=== PATIENT | female | born 1955 | race African-American/Black ===

== ENCOUNTER 2020-04-16 08:29 | Outpatient (CLI) | payer OTHER ==
--- NOTE | 2020-04-20 14:57 | MMO ---
Bilateral MAMMO Bilat Screen [facility]. CLINICAL HISTORY: Patient is 64 years old and is seen for screening. The patient has no family history of breast cancer. The patient has no personal history of cancer. VIEWS: The views performed were: bilateral craniocaudal with tomosynthesis and bilateral mediolateral oblique with tomosynthesis. FILMS COMPARED: The present examination has been compared to prior imaging studies performed at This study has been interpreted with the assistance of computer-aided detection. MAMMOGRAM FINDINGS: The breasts are heterogeneously dense, which could obscure a lesion on mammography. Benign calcifications are noted bilaterally. There are no suspicious masses, suspicious calcifications, or new areas of architectural distortion. IMPRESSION: THERE IS NO MAMMOGRAPHIC EVIDENCE OF MALIGNANCY. A ROUTINE FOLLOW-UP MAMMOGRAM IN 1 YEAR IS RECOMMENDED. THE RESULTS OF THIS EXAM WERE SENT TO THE PATIENT. ACR BI-RADS Category 2 - Benign finding MAMMOGRAPHY NOTE: 1. A negative mammogram report should not delay a biopsy if a dominant of clinically suspicious mass is present. 2. Approximately 10% to 15% of breast cancers are not detected by mammography. 3. Adenosis and dense breasts may obscure an underlying neoplasm. Reported by: BRITTNY DAS MD Electonically Signed: [id number]
== END 2020-04-16 08:30 | disposition home or self-care (01) ==
LOC: BICMAMMO 08:29
PROVIDERS: ATTEND Family Medicine
DX: Z12.31 Encounter for screening mammogram for malignant neoplasm of breast (principal)
CPT/HCPCS: 77063; 77067

== ENCOUNTER 2020-05-21 05:55 | Outpatient (CLI) | payer OTHER ==
[2020-05-21 14:02] LABS: PTT 30.2 sec (22.9-36.1)
[2020-05-21 14:07] LABS: Hemoglobin 12.3 g/dL (12.0-16.0); Mean Corpuscular HGB CONC 33.6 g/dL (32.0-36.0); Mean Corpuscular Hemoglobin 31.7 pg (27.0-31.0); Mean Corpuscular Volume 94.4 fL (78.0-98.0); Mean Platelet Volume 7.7 fL (7.4-10.4); Platelet Count 350 thou/uL (130-400); RBC Distribution Width 12.3 % (11.5-14.5); Red Blood Cell (RBC) Count 3.87 mill/uL (4.20-5.40)
[2020-05-21 14:28] LABS: Anion Gap 11 mmol/L (10-20); BUN (Urea Nitrogen) 11 mg/dL (9.8-20.1); Calc. Creatinine Clearance 0 mL/min (70-130); Calcium 8.6 mg/dL (7.8-10.44); Carbon Dioxide 25 mmol/L (23-31); Chloride 103 mmol/L (98-107); Estimated GFR-MDRD 76; Glucose 100 mg/dL (80-115); Potassium 3.8 mmol/L (3.5-5.1); Sodium 135 mmol/L (136-145)
[2020-05-22 15:58] LABS: SARS-CoV-2 N Gene Negative; SARS-CoV-2 S Gene Negative; SARS-CoV-2 orf1ab Negative
[2020-05-22 15:59] LABS: SARS-CoV-2 MS2 Positive
--- NOTE | 2020-05-25 10:10 | EKG ---
Test Reason : PRE OP FOR 05/26 Blood Pressure : / mmHG Vent. Rate : 060 BPM Atrial Rate : 060 BPM P-R Int : 150 ms QRS Dur : 080 ms QT Int : 398 ms P-R-T Axes : 076 067 058 degrees QTc Int : 398 ms Normal sinus rhythm Normal ECG Confirmed by FRANCESCA FUENTES (2) on 05/25/2020 10:09:41 AM Referred By: KIKA Confirmed By:FRANCESCA FUENTES
== END 2020-05-21 05:56 | disposition home or self-care (01) ==
LOC: LABBT 05:55
PROVIDERS: ATTEND Surgery
DX: Z01.818 Encounter for other preprocedural examination (principal); Z11.59 Encounter for screening for other viral diseases; M48.061 Spinal stenosis, lumbar region without neurogenic claudication; M51.16 Intervertebral disc disorders with radiculopathy, lumbar region
CPT/HCPCS: 80048; 85027; 85610; 85730; 87635; 93005; 93010; U0003

== ENCOUNTER 2020-06-08 16:10 | Inpatient (IN) | payer OTHER ==
[~2020-06-08 16:10] MED LIST: Iopamidol-370 76% 500 ML 1 ML ONE
[2020-06-08 18:01] LABS: #Basophils 0.1 thou/uL (0.0-0.2); #Eosinphils 0.5 thou/uL (0.0-0.7); #Lymphocytes 4.5 thou/uL (1.20-3.40); #Monocytes 1.2 thou/uL (0.11-0.59); #Neutrophils 8.7 thou/uL (1.40-6.50); %Basophils 0.9 % (0.0-1.0); %Eosinophils 3.4 % (0.0-10.0); %Lymphocytes 29.9 % (21.0-51.0); %Neutrophils 57.8 % (42.0-75.0); Hemoglobin 12.2 g/dL (12.0-16.0); Mean Corpuscular HGB CONC 33.3 g/dL (32.0-36.0); Mean Corpuscular Hemoglobin 31.8 pg (27.0-31.0); Mean Corpuscular Volume 95.7 fL (78.0-98.0); Mean Platelet Volume 6.2 fL (7.4-10.4); Platelet Count 439 thou/uL (130-400); RBC Distribution Width 12.5 % (11.5-14.5); Red Blood Cell (RBC) Count 3.84 mill/uL (4.20-5.40); White Blood Cell (WBC) Count 15.1 thou/uL (4.8-10.8)
--- NOTE | 2020-06-08 18:06 | CT ---
CT HEAD WITHOUT IV CONTRAST COMPARISON: None HISTORY: Right-sided weakness. TECHNIQUE: Axial CT imaging at 5 mm intervals from vertex through skull base without contrast FINDINGS: There is no evidence of an acute infarction, hemorrhage, mass effect, or midline shift. The ventricul ar system is normal in size, shape, and position. Visualized paranasal sinuses are clear. Osseous structures appear intact. IMPRESSION: 1. No acute intracranial abnormality demonstrated.
[2020-06-08 18:20] LABS: ALT (SGPT) 140 U/L (8-55); AST (SGOT) 97 U/L (5-34); Albumin 3.5 g/dL (3.4-4.8); Alkaline Phosphatase 167 U/L (40-110); Anion Gap 12 mmol/L (10-20); BUN (Urea Nitrogen) 23 mg/dL (9.8-20.1); Bilirubin, Total 0.3 mg/dL (0.2-1.2); Calc. Creatinine Clearance 0 mL/min (70-130); Calcium 8.4 mg/dL (7.8-10.44); Carbon Dioxide 23 mmol/L (23-31); Chloride 96 mmol/L (98-107); Estimated GFR-MDRD 61; Globulin 2.8 g/dL (2.4-3.5); Glucose 71 mg/dL (80-115); Potassium 4.4 mmol/L (3.5-5.1); Protein, Total 6.3 g/dL (6.0-8.3); Sodium 127 mmol/L (136-145)
[2020-06-08] MEDS ORDERED: Aspirin 325 MG TAB ONE (18:24)
[2020-06-08 18:58] LABS: Bacteria/HPF None Seen HPF (None Seen); Bilirubin Negative (Negative); Blood, Urine Trace (Negative); Clarity Clear (Clear); Glucose, Urine (Dipstick) Normal (Negative); Ketone, Urine Negative (Negative); Leukocyte 75 Leu/uL (Negative); Nitrite Negative (Negative); Protein, Urine (Dipstick) Negative (Neg-Trace); RBC/HPF 0-3 HPF (0-3); Specific Gravity, Urine 1.012 (1.002-1.036); Squamous Epithelial 0-3 HPF (0-3); Urobilinogen Normal mg/dL (Less than 2)
[2020-06-08] MEDS ORDERED: Sodium Chloride 0.9% 100 ML ONE (19:25)
[2020-06-08] MEDS ORDERED: cefTRIAXone\\ROCEPHIN 1 GM VIAL ONE (19:25)
[2020-06-08] MEDS ORDERED: Calcium Carbonate 500 MG ChewTAB PO PRN (20:17)
[2020-06-08] MEDS ORDERED: Ondansetron PF 4 MG/2 ML Vial IVP PRN (20:17)
[2020-06-08] MEDS ORDERED: Senokot S 8.6-50 MG TAB PO PRN (20:17)
[2020-06-08] MEDS ORDERED: Acetaminophen 325 MG TAB PO PRN (20:17)
[2020-06-08] MEDS ORDERED: Ondansetron ODT 4 MG TAB PO PRN (20:17)
[2020-06-08] MEDS ORDERED: Sodium Chloride 0.9% 1,000 ML IV SCH ×2 (20:30→23:19)
[2020-06-08 21:43] LABS: Thyroid Stimulating Hormone 2.4669 uIU/mL (0.35-4.94)
--- NOTE | 2020-06-08 22:04 | CT ---
CT lumbar spine with IV contrast: HISTORY: Right lower extremity numbness and tingling post laminectomy. COMPARISON: No prior CT exams of the lumbar spine available FINDINGS: There are subcentimeter hypodense lesions seen in each kidney which are too small to characterize but statistically likely represent cysts. Postcholecystectomy changes are visualized. Postoperative changes in the epigastric region are identified with multiple surgical clips present. There is sugges tion of a hiatal hernia. Visualized portions of the colon are distended with gas and retained fecal material. A questionable dilated loop of small bowel within the anterior aspect of the midabdomen is seen. However this is incompletely imaged and could be related to fluid within portion of the colon. Postoperative changes related to laminectomy defects are seen at the L3-4 and L4-5 levels. Grade 1 an terolisthesis of L4 and L5 is present measuring 8 mm. There is diminished attenuation seen posterior to the thecal sac at the level of laminectomy defects which also extends along the right la teral aspect of the thecal sac at the L4-5 level. Findings could be related to postoperative changes. Infection cannot be excluded based on this exam. There is also fluid seen within the subcuta neous soft tissues extending from the L1-2 level to the L4-5 level. This may also be postoperative in origin, but again infection cannot be excluded based on this study. No fluid density is seen in a prevertebral location involving the lumbar spine. L1-2: No significant central canal or neural foraminal narrowing is seen. L2-3: No significant central canal or neural foraminal narrowing is seen. L3-4: This is site of laminectomy defect as described above. Fluid is seen posterior to the thecal sa c at this level which limits evaluation of the thecal sac. Findings could be related to postoperative changes, but infection cannot be excluded. Facet degenerative changes are seen at this level. There is mild to moderate bilateral neural foraminal narrowing. L4-5: Grade 1 anterolisthesis is present at this level as described above with facet degenerative bairon nges. There is loss of intervertebral disc height with gas seen within the L4-5 intervertebral disc which can be seen with disc degenerative changes. There is suggestion of a disc bulge at this level. The fat in the right neural foramen is unable to be delineated, and there is severe right-sided neural foraminal narrowing with moderate to severe left-sided neural foraminal narrowing. There is fl uid density seen along the right lateral aspect of the thecal sac as well as posterior to the thecal sac at this level as described above. L5-S1: Mild disc osteophyte complex is present. However, the central spinal canal at this level does appear patent. Facet degenerative changes are present. Moderate bilateral neural foraminal narrowing is present. IMPRESSION: 1. Evidence of laminectomy defects at the L3-4 and L4-5 levels. There is fluid seen posterior to thec al sac as well as in the subcutaneous soft tissues at level of postsurgical change. The fluid density extends along the right lateral aspect of the thecal sac at the L4-5 level. While these findi ngs could be postoperative in origin, infection cannot be excluded. 2. Severe right-sided neural foraminal narrowing at L4-5 level with moderate to severe left-sided nate ral foraminal narrowing. There is also no foraminal narrowing at the L3-4 and L5-S1 levels. 3. Postoperative changes of the abdomen. There is dilated and distended gas-filled colon seen on the salvage winder image which contains gas and retained fecal material. Questionable dilated loop of bowel within the central and lower abdomen, but this is incompletely imaged or evaluated. However, the vlad rity of the visualized loops of small bowel are normal in caliber. This presumed dilated loop of fluid-filled bowel could potentially represent fluid within a portion of the colon. This is incomplet geronimo imaged. 4. Postcholecystectomy changes. 5. Postoperative changes epigastric region with evidence of hiatal hernia. 6. Subcentimeter too small to characterize bilateral hypodense renal lesions statistically likely rep resenting cysts. 7. Mild right pelvocaliectasis. This is nonspecific. The proximal right ureter is normal in caliber.
--- NOTE | 2020-06-08 22:31 | HP ---
PRIMARY CARE PHYSICIAN: Debra Arana MD NEUROSURGEON: José Miguel Gill MD CHIEF COMPLAINT: Right upper extremity weakness and cramping. Right lower extremity numbness and tingling x2 days. HISTORY OF PRESENT ILLNESS: The patient is a 64-year-old female with a past medical history significant for hypertension, who presents to the ER for the above complaint. The patient presents to the ER complaining of right upper hand cramping and right foot tingling x2 days. The patient reports that she is approximately 13 days post laminectomy done by Dr. Gill. She reports that she had an L4-L5 laminectomy. Since discharge, she has been on restrictions, told not to bend at the waist. She has a gripping device that she has been using with her right hand to turkey picker objects and prevent bending at waist. She denies any recent trauma or falls. She denies any recent change in her medications. She denies any recent fever or chills. She denies having any headache, dysphagia, or dysarthria. She denies any chest pain or heart palpitations. She denies any shortness of breath or cough. She denies any abdominal pain, nausea, vomiting, or diarrhea. She denies any dysuria, incontinence or urinary retention. In the ER, her vital signs were stable. She was afebrile, normotensive, normal pulse, normal respirations, normal SpO2 saturations. Her EKG was normal sinus rhythm. Her troponin was 0.018. CT of the brain was negative. She had WBC of 15.1, lactic acid of 2.2, and her urine did show leukocytes and wbc's. Her sodium was 127, her BUN was 23 and her creatinine was 1.10. She was given 2 L normal saline, full dose aspirin and Rocephin IV piggyback and will be admitted to the floor. PAST MEDICAL HISTORY: 1. Hypertension. 2. Mitral valve leaking. PAST SURGICAL HISTORY: 1. Status post L4-L5 laminectomy by Dr. Gill on May 26. 2. Hysterectomy. 3. Cataract surgery. 4. Left ovarian cyst. 5. Bilateral foot surgery. 6. Gastric bypass. SOCIAL HISTORY: The patient lives at home with her family. She drinks alcohol socially. She denies any tobacco or illicit drug use. FAMILY HISTORY: Noncontributory to this case. ALLERGIES: 1. DILAUDID. 2. DEMEROL. HOME MEDICATIONS: 1. Olmesartan 40 mg p.o. daily. 2. Chlorthalidone 25 mg p.o. daily. 3. Estrace vaginal cream 0.01% apply 2 times per week. REVIEW OF SYSTEMS: All review of systems are negative unless otherwise stated in the HPI. PHYSICAL EXAMINATION: VITAL SIGNS: Temperature 98.4, blood pressure 104/66, pulse 62, respiratory rate 18, 99% on room air, 0/10 pain. CONSTITUTIONAL: The patient is alert and oriented to person, place, and time. Nontoxic, comfortable, lying in bed. No focal deficits. HEAD: Atraumatic and normocephalic. EYES: PERRLA. Extraocular muscles intact. Sclerae nonicteric. ENT: Bilateral TMs intact. Nares patent bilaterally. Oropharynx is clear. Uvula midline. Dry mucous membranes. No oral lesions. NECK: Full range of motion. No cervical spinous tenderness. No JVD. No cervical adenopathy. RESPIRATORY/CHEST: Respirations even nonlabored. Clear to auscultation. No rhonchi, wheezes, or rales. CARDIOVASCULAR: S1, S2 appreciated. No murmurs, rubs, or gallops. ABDOMEN: Soft, nontender, nondistended. Active bowel sounds. No guarding. No rigidity. No rebound. Negative Rovsing sign. Negative Giles sign. BACK: No central spinous tenderness. No CVA tenderness. Full range of motion. EXTREMITIES: Upper extremities; full range of motion. Strength normal. Milk Inspector normal and equal bilaterally. Palpable radial pulses. Sensation intact. Lower extremities; full range of motion. Normal strength. Reports decreased sensation in right foot, left sensation normal. Palpable pedal pulses. No swelling. NEUROLOGIC: Cranial nerves 2 through 12 are intact. No focal motor deficits. The patient does report decreased sensation on her right foot dorsum. Normal gait. PSYCHIATRIC: A and O x3. Normal affect. LABS AND DIAGNOSTICS: CT of the brain was negative for any acute process. Sodium 127, potassium 4.4, chloride 96, carbon dioxide 23, BUN 23, creatinine 1.10, glucose 71. Lactic acid 2.2, pending repeat. Total bilirubin 0.3, AST 97, ALT 140, alkaline phosphatase 167. Troponin 0.018. WBCs 15.1, hemoglobin 12.2, hematocrit 36.8, platelets 439. Urine; trace blood, 75 leukocytes, 7-10 wbc's, no bacteria. IMPRESSION AND PLAN: 1. Right lower extremity tingling. We will admit the patient to the stroke unit inpatient status. Expected length of stay greater than 2 midnights. The patient presents for right hand "cramping" and right foot tingling. She is status post L4-L5 laminectomy, Dr. Gill on May 26. She has been using an assist device to pick things up that may be contributing to her hand cramping. On assessment, her neuro exam is normal. She does report some tingling to her right foot. For now , we will order a CT scan of the lumbar spine to rule out postoperative complication. The patient's vital signs are stable. She is afebrile with a normal blood pressure, normal pulse, normal respirations. She has a white count of 15.1, her urine is consistent with urinary tract infection. We will also check a B12 and a folate level. We will consult Dr. Gill with Neurosurgery. We will consult PT and OT. We will perform neuro checks q4. We will check a TSH and a sedimentation rate. 2. Urinary tract infection. The patient denies any urinary symptoms. Her urine is consistent with a UTI with leukocytes and wbc's. Urine culture is pending. The patient was given Rocephin in the ER. We will continue Rocephin and IV fluids. 3. Dehydration. The patient presented with a BUN of 23 and creatinine of 1.10. She has tacky mucous membranes. We will continue gentle IV fluid hydration. The patient received 2 L in the ER. We will recheck levels in the a.m. 4. Hyponatremia. The patient presented with a sodium of 127. We will check serum osmol, urine osmol, and urine sodium. 5. Hypertension. The patient presented with a normal blood pressure. The patient takes olmesartan at home. We will hold home medication for now. We will rehydrate and will restart in the morning as needed. We will hold patient's chlorthalidone. 6. Protonix for GI prophylaxis. No DVT prophylaxis for now until epidural abscess and possible hematoma ruled out. We will check a CMP and CBC in the a.m. 7. The patient is a full code. Her medical contact is her , Álvaro, [phone]. 8. Discussed the case with Dr. Fernandez. Job ID: [id number] MTDD
[2020-06-08 22:32] LABS: Lactic Acid 5.6 mmol/L (0.5-2.2)
--- NOTE | 2020-06-08 23:21 | PDOC.EVN ---
Event Note - Event Note Event Note: repeat lactic increasing. Increased IVF rate, added vanc for emperic therapy and repeat lactic in [address] Jacobs.
[2020-06-09 00:02] LABS: Lactic Acid 2.3 mmol/L (0.5-2.2)
[2020-06-09] MEDS ORDERED: Famotidine 20 MG TAB ONE (00:16)
[2020-06-09] MEDS ORDERED: Vancomycin 1 GM/200 ML BAG ONE (00:17)
[2020-06-09] MEDS: Famotidine 20 MG TAB PO SCH ×3 (01:56→20:45)
[2020-06-09] MEDS: Famotidine/PF 20 mg/2ml Vial SLOW IVP SCH ×3 (01:56→20:53)
[2020-06-09 03:46] VITALS: BMI 28.3
[2020-06-09 03:46] LABS: Lactic Acid 2.7 mmol/L (0.5-2.2)
[2020-06-09 04:19] LABS: AST (SGOT) 63 U/L (5-34); Albumin 3.1 g/dL (3.4-4.8); Anion Gap 14 mmol/L (10-20); Bilirubin, Total 0.3 mg/dL (0.2-1.2); Calc. Creatinine Clearance 80 mL/min (70-130); Calcium 7.8 mg/dL (7.8-10.44); Carbon Dioxide 21 mmol/L (23-31); Chloride 103 mmol/L (98-107); Estimated GFR-MDRD 86; Globulin 2.4 g/dL (2.4-3.5); Potassium 3.9 mmol/L (3.5-5.1); Protein, Total 5.5 g/dL (6.0-8.3); Sodium 134 mmol/L (136-145)
[2020-06-09 04:27] LABS: Alkaline Phosphatase 146 U/L (40-110)
[2020-06-09 04:29] LABS: BUN (Urea Nitrogen) 16 mg/dL (9.8-20.1)
[2020-06-09 04:30] LABS: ALT (SGPT) 116 U/L (8-55)
[2020-06-09 04:41] LABS: Glucose 53 mg/dL (80-115)
[2020-06-09 05:22] LABS: #Basophils 0.1 thou/uL (0.0-0.2); #Eosinphils 0.6 thou/uL (0.0-0.7); #Lymphocytes 3.2 thou/uL (1.20-3.40); #Monocytes 1.1 thou/uL (0.11-0.59); #Neutrophils 6.2 thou/uL (1.40-6.50); %Basophils 0.7 % (0.0-1.0); %Lymphocytes 28.4 % (21.0-51.0); %Neutrophils 55.9 % (42.0-75.0); Hemoglobin 11.5 g/dL (12.0-16.0); Mean Corpuscular HGB CONC 33.4 g/dL (32.0-36.0); Mean Corpuscular Hemoglobin 32.3 pg (27.0-31.0); Mean Corpuscular Volume 96.5 fL (78.0-98.0); Mean Platelet Volume 6.9 fL (7.4-10.4); Platelet Count 383 thou/uL (130-400); RBC Distribution Width 12.4 % (11.5-14.5); Red Blood Cell (RBC) Count 3.58 mill/uL (4.20-5.40); White Blood Cell (WBC) Count 11.1 thou/uL (4.8-10.8)
[2020-06-09] MEDS ORDERED: Gabapentin 100 MG CAP PO PRN (07:37)
--- NOTE | 2020-06-09 14:18 | PRG ---
DATE OF SERVICE: 06/09/2020 Ms. Holland is a very pleasant 64-year-old woman, known to me, 2 weeks ago I did a lumbar laminectomy for lumbar stenosis. She has done well with improvement in her leg pain. She has some paresthesias in her right foot, but this is longstanding. Yesterday, she began to have feelings of right upper extremity weakness and contacted my team. We recommended procession to the emergency room. Evaluation demonstrates a leukocytosis with a normal ESR. She has evidence of urinary tract infection, hyponatremia, dehydration, and hypoglycemia. She is not diabetic. Blood cultures are negative. On exam, she is alert and appropriate. She does have some delay in moving her right upper extremity, but when able to activate her extremity, it appears to have normal strength. Again, this may be more of an apraxia than anything. I do not see any other findings. Her wound is healing very well with no sign of infection. Lumbar CT was done for unknown reasons and it demonstrates as expected postoperative change. Head CT was done, which demonstrates no acute abnormality. I have recommended a brain MRI without and with contrast to rule out stroke and a cervical spine MRI without contrast to evaluate for cervical radiculopathy. Job ID: [id number]
[2020-06-09] MEDS ORDERED: Magnevist 469MG/ML 20 ML VIAL ONE ×3 (14:21)
--- NOTE | 2020-06-09 15:01 | MRI ---
EXAM: MRI of the brain without and with contrast HISTORY: Right upper and lower extremity weakness COMPARISON: None TECHNIQUE: Multiplanar multisequence MR images were obtained of the brain without and with IV contras t. FINDINGS: The brain demonstrates normal signal intensity on all obtained sequences. No restricted diffusion. No abnormal enhancement. No hydronephrosis. No extra-axial fluid collection or intracranial hemorrhage. The expected flow voids are present. Corpus callosum, pituitary, and craniocervical junction are within normal limits. The calvarium and overlying soft tissues are unremarkable. The paranasal sinuses and mastoid air cells are well aerated. IMPRESSION: No evidence of acute intracranial abnormality.
--- NOTE | 2020-06-09 15:21 | MRI ---
MRI CERVICAL SPINE WITH AND WITHOUT CONTRAST: INDICATION: Right upper extremity weakness. FINDINGS: Cervical vertebrae maintain normal height and alignment. Vertebral body signal is normal. Disk spac es are maintained. There is mild disk narrowing at C5-6. No significant disk bulge or spondylosis at C2-3 or C3-4. At C4-5, minimal posterior disk bulge and spondylosis mildly efface the anterior subarachnoid space. At C5-6, disk bulge and spondylosis is more pronounced effacing the anterior subarachnoid space and a butting the anterior cord. No significant central canal or foraminal stenosis. At C6-7, no significant disk bulge or spondylosis. No central canal or foraminal stenosis. At C7-T1, no significant abnormality. Cervical cord signal appears normal. There is no abnormal enhancement identified. IMPRESSION: Mild posterior disk bulge and spondylosis at C5-6 and C6-7 as described. POS: AH
--- NOTE | 2020-06-09 15:30 | MRI ---
MRI LUMBAR SPINE WITH AND WITHOUT CONTRAST: 06/09/20 Correlation [address] made [address] lumbar spine performed 06/08/20 which showed fluid collection posterior to t he laminectomy change at L3-4 and L4-5. Central canal stenosis was severe at L4-5. FINDINGS: Vertebral bodies maintain height. There is a grade I spondylolisthesis at L4-5. There are postoperati ve changes seen at L3-4, L4-5, and L5-S1 as noted on the CT. No significant disc bulge or protrusion seen at T12-L1, L1-2 or L2-3 levels. There is fluid signal collection seen at the operative site and extending to the epidural space at L3 -4 and L4-5 and L5-S1. This complex fluid dense collection is seen centrally and slightly to the righ t of midline and measures 5 cm craniocaudal dimension in the sagittal plane and measures 2.5 cm AP di mension in the axial plane. Enhancement is seen surrounding this fluid dense collection. Abscess wou ld be the diagnosis of exclusion. This does compress the thecal sac at L4-5 resulting in moderately s evere central canal stenosis. There is also fluid signal collection in the subcutaneous adipose tissue posterior to the paraspinal musculature consistent with a subcutaneous fluid/abscess collection as well. This subcutaneous collec tion extends superiorly to the L2 level and inferior to the L5-S1 level. There appears to be a connec tion through the epidural collection and subcutaneous collection both superiorly and inferiorly. The re is a superior connection at L2-3 level and an inferior connection to these two collections seen at L5-S1 level. IMPRESSION: Fluid signal collection in the operative bed extending to the epidural space at L3-4, L4-5 and L5-S1 . Severe compression of thecal sac is seen at L4-5. There is a second fluid signal collection in the subcutaneous tissues posterior to the paraspinal musculature as described above. POS: DESHAUN
[2020-06-09] MEDS ORDERED: cefTRIAXone\\ROCEPHIN 1 GM in Sodium Chloride 0.9% 100 ML IVPB SCH ×2 (18:00→19:00)
[2020-06-09] MEDS ORDERED: Simethicone Chewable 80 MG TAB PO PRN (19:01)
--- NOTE | 2020-06-09 19:52 | PRG ---
DATE OF SERVICE: 06/09/2020 The patient was recently readmitted for new right-sided weakness, status post lumbar decompression L3-L5 on 05/26/[address] Gill's service. The patient reports that over the last few days, she has experienced some right-sided weakness. She was brought to the ER, admitted by the hospitalist service for further workup. MRI of the cervical spine and the brain were unremarkable. MRI of the lumbar spine was notable for a large postoperative fluid collection at the surgical bed from L3- S1. It is fairly compressive on the right L4-L5. I revisited the patient at the bedside. She is sitting up, awake, alert, in no acute distress. She has free active range of motion of all extremities, but she does seem to have some slight weakness over the right proximal leg 4-/5. She is normal reflexive and her sensation is intact to light touch. She ambulates easily with the IV pole. Overall, the patient appears to be improving since her admission. She admits that she is feeling much better. I will touch base with Dr. Panda defer additional management to his team. Job ID: [id number] MTDD
[2020-06-09 19:54] LABS: Lactic Acid 3.1 mmol/L (0.5-2.2)
[2020-06-09 19:57] LABS: ALT (SGPT) 102 U/L (8-55); AST (SGOT) 57 U/L (5-34); Albumin 3.1 g/dL (3.4-4.8); Alkaline Phosphatase 154 U/L (40-110); Anion Gap 13 mmol/L (10-20); BUN (Urea Nitrogen) 16 mg/dL (9.8-20.1); Bilirubin, Total 0.2 mg/dL (0.2-1.2); Calc. Creatinine Clearance 59 mL/min (70-130); Calcium 8.2 mg/dL (7.8-10.44); Carbon Dioxide 21 mmol/L (23-31); Chloride 103 mmol/L (98-107); Estimated GFR-MDRD 60; Globulin 2.6 g/dL (2.4-3.5); Glucose 66 mg/dL (80-115); Potassium 4.4 mmol/L (3.5-5.1); Protein, Total 5.7 g/dL (6.0-8.3); Sodium 133 mmol/L (136-145)
--- NOTE | 2020-06-09 20:34 | PDOC.HOSPP ---
- Subjective Encounter Date: 06/09/20 Encounter Time: 07:00 Subjective: The patient still has tingling in right arm and right leg. She also reports difficulty holding a cup No headaches, no slurred speech - Objective Vital Signs & Weight: Vital Signs (12 hours) Temp Pulse Resp BP BP Pulse Ox 06/09/20 15:00 98.7 F 80 17 112/71 98 06/09/20 12:59 117/61 06/09/20 11:29 98.6 F 82 14 100/62 100 06/09/20 11:25 120/69 06/09/20 08:59 99 Weight Weight 160 lb I&O: 06/08/20 06/09/20 06/10/20 06:59 06:59 06:59 Intake Total 990 Output Total 950 Balance 40 Result Diagrams: 06/09/20 04:47 06/09/20 19:28 Hospitalist ROS - Review of Systems Constitutional: denies: fever, chills Eyes: denies: pain, vision change - Medication Medications: Active Medications Generic Name Dose Route Start Last Admin Trade Name Elham PRN Reason Stop Dose Admin Famotidine 20 mg 06/08/20 21:00 06/09/20 12:50 Pepcid SLOW IVP Not Given Q12HR CATRACHITA Famotidine 20 mg 06/08/20 21:00 06/09/20 09:08 Pepcid PO 20 mg BID CATRACHITA Administration Ceftriaxone Sodium 1 gm/ 100 mls @ 200 mls/hr 06/09/20 18:00 06/09/20 18:16 Sodium Chloride IVPB 100 mls 1800 CATRACHITA Administration Simethicone 80 mg 06/09/20 19:01 06/09/20 19:44 Mylicon Chewable PO 80 mg PCHS PRN Administration Gas Pain - Exam General Appearance: NAD, awake alert Eye: PERRL, anicteric sclera ENT: normocephalic atraumatic, no oropharyngeal lesions Neck: supple, symmetric, no JVD Heart: RRR, no murmur, no gallops, no rubs Respiratory: CTAB, no wheezes, no rales, no ronchi Gastrointestinal: soft, non-tender, non-distended, normal bowel sounds Skin: normal turgor, no lesions, no rashes Neurological: cranial nerve grossly intact, normal sensation to touch, no focal deficits, no new deficit Neurological - other findings: 2+ reflexes brachioradialis/biceps, 1+ lower legs Musculoskeletal: normal tone Musculoskeletal - other findings: 4/5 strength RUE and RLE Hosp A/P - Plan MRI cervical spine: mild posterior disk bulge and spondylosis at C5-C6 and C6-C7 MRI lumbar spine: fluid collection extending to epidural space and compression of thecal sac This is a 64 year old female with past medical history of hypertension presenting with RUE and RLE parasthesias after recent laminectomy Right upper and lower extremity weakness/parasthesias - she is s/p recent laminectomy. She does have mild spondylosis which could explain upper extremity radiculopathy, and has mild parasthesia and weakness s/ p laminectomy which per neurosurgery is normal. MRI lumbar spine no concerning findings per neurosurgery Leukocytosis - blood and urine cultures normal. WBC was 15, No evidence of UTI - will d/c vanc and continue ceftriaxone given recent surgery Lactic acidosis - likely dehydration - will increase IV fluids to 150, repeat lactate in am Transaminitis - likely dehydration - LFTS downtrending - no abd pain Hypoglycemia - repeat blood sugar 80 per nursing - continue to monitor Macrocytic anemia - TSH/B12/folate normal
[2020-06-09] MEDS ORDERED: Sodium Chloride 0.9% 1,000 ML IV SCH (21:00)
[2020-06-09] MEDS ORDERED: Vancomycin 1 GM in Premix Bag 1 BAG IVPB SCH (21:00)
[2020-06-10 04:56] LABS: Hemoglobin 10.4 g/dL (12.0-16.0); Mean Corpuscular HGB CONC 32.1 g/dL (32.0-36.0); Mean Corpuscular Hemoglobin 30.9 pg (27.0-31.0); Mean Corpuscular Volume 96.3 fL (78.0-98.0); Mean Platelet Volume 6.9 fL (7.4-10.4); Platelet Count 338 thou/uL (130-400); RBC Distribution Width 12.5 % (11.5-14.5); Red Blood Cell (RBC) Count 3.37 mill/uL (4.20-5.40); White Blood Cell (WBC) Count 8.8 thou/uL (4.8-10.8)
[2020-06-10 05:19] LABS: Anion Gap 10 mmol/L (10-20); BUN (Urea Nitrogen) 13 mg/dL (9.8-20.1); Calc. Creatinine Clearance 87 mL/min (70-130); Calcium 7.9 mg/dL (7.8-10.44); Carbon Dioxide 23 mmol/L (23-31); Chloride 105 mmol/L (98-107); Estimated GFR-MDRD Greater than 90; Glucose 74 mg/dL (80-115); Potassium 3.9 mmol/L (3.5-5.1); Sodium 134 mmol/L (136-145)
[2020-06-10] MEDS: Famotidine/PF 20 mg/2ml Vial SLOW IVP SCH (09:30)
[2020-06-10] MEDS: Famotidine 20 MG TAB PO SCH (09:53)
[2020-06-10 10:33] LABS: Lactic Acid 2.8 mmol/L (0.5-2.2)
[2020-06-10 10:47] LABS: ALT (SGPT) 100 U/L (8-55); AST (SGOT) 46 U/L (5-34); Albumin 3.5 g/dL (3.4-4.8); Alkaline Phosphatase 143 U/L (40-110); Bilirubin, Direct 0.2 mg/dL (0.1-0.3); Bilirubin, Total 0.4 mg/dL (0.2-1.2); Protein, Total 6.4 g/dL (6.0-8.3)
[2020-06-10 16:01] VITALS: BP 162/76; TEMP 98
[2020-06-10 16:05] LABS: Lactic Acid 2.3 mmol/L (0.5-2.2)
--- NOTE | 2020-06-11 01:11 | DIS ---
DATE OF ADMISSION: 06/08/2020 DATE OF DISCHARGE: 06/10/2020 DISCHARGE DIAGNOSES: 1. Right upper extremity and right lower extremity weakness/paresthesias, likely secondary to combination of cervical spondylosis and postlaminectomy weakness. 2. Severe dehydration with lactic acidosis/possible urinary tract infection. 3. Hypoglycemia 4. Transaminitis. 5. Acute kidney injury. BRIEF HISTORY OF PRESENT ILLNESS: This is a 64-year-old female, with past medical history of hypertension, who presented to the emergency room with right upper hand cramping and right foot tingling x2 days. She reports that she is 13 days postlaminectomy of L4-L5. She underwent a CT scan of her brain in the emergency room, which showed no acute abnormalities. She also had a CT scan of her lumbar spine, which showed laminectomy defects at L3-L4 with fluid seen posteriorly to the thecal sac extending along the right lateral aspect of the thecal sac at L4-L5. Due to severe lactic acidosis and white count of 15.1, she was started on broad- spectrum antibiotics with vanc and ceftriaxone and admitted for further workup. HOSPITAL COURSE: Right upper extremity and right lower extremity paresthesias secondary to cervical spondylosis and normal postop weakness from surgery: Patient was evaluated by Physical Therapy and Occupational Therapy and did well and was discharged from therapy. She was started on IV vancomycin and ceftriaxone initially for concern for an infection. An MRI of her lumbar spine was done which showed a fluid collection extending to the epidural space from L3-S1. I did speak with Dr. Gill about this, who was not concerned for an infection. Additionally, her postoperative site did not appear infected. She was given gabapentin p.r.n. while in the hospital. Patient's subjective numbness was persistent at discharge, however, her strength improved and was 5/5 at the time of discharge. She will follow up as an outpatient with Dr. Gill. Stroke workup including an MRI of her brain was normal. Echocardiogram did not show any evidence of a clot. I did not start the patient on aspirin or statin since her weakness was explained by an alternative etiology. Lactic acidosis, likely secondary to severe dehydration: Patient presented with a blood pressure of 90 systolic. Her lactate was 5.6. She was given IV fluids and her lactate improved to 2.3 at the time of discharge. Her hydrochlorothiazide was discontinued at the time of discharge. Given that her blood pressure was in the 160s, she was advised she can resume her olmesartan tomorrow, if her blood pressure is still high. Her blood cultures and urine cultures were normal, and patient did not have any signs of urine infection aside from chronic urinary incontinence. She was advised to consider seeing a urologist as an outpatient. Transaminitis: Patient presented with elevated LFTs with an AST of 97, an ALT of 140, and an alk phos of 167. She was given IV fluids with improvement in her LFTs to 46/100/143. She had no abdominal pain, nausea, or vomiting. She should have repeat LFTs done in a week with her PCP. Severe dehydration with lactic acidosis. The patient was discharged with cefdinir 300 mg empirically for 5 days. DISCHARGE PHYSICAL EXAMINATION: VITAL SIGNS: Temperature 98.1, heart rate 66, respiratory rate 18, O2 saturation 99% on room air, and blood pressure 162/76. GENERAL: Patient is alert, awake, and oriented x3. NEUROLOGIC: Cranial nerves 2 through 12 are intact. She has subjectively diminished sensation in her right arm and right leg. She has 5/5 strength in all 4 extremities. She has a normal gait. CV: Regular rate and rhythm. No murmurs, rubs, or gallops. LUNGS: Clear to auscultation bilaterally. ABDOMEN: Positive bowel sounds, soft, nontender, and nondistended. EXTREMITIES: She has no swelling. PERTINENT LABORATORY DATA: CBC 06/10: Hemoglobin 10.4, hematocrit 32.4, white count is 8.8, and platelet count 338. BMP 06/10: Sodium is 134, glucose is 74. Rest of BMP is unremarkable. Lactic acid: 5.6 on 06/08, improved to 2.3 on 06/10. LFTs: AST 46, ALT 100, and alk phos 143 on 06/10. Vitamin B12: 902. Folate: 11. TSH: 2.4. UA: Negative. Urine osmolarity: 387. Urine sodium: 90. IMAGING: CT brain 06/08: No acute abnormality. CT lumbar spine 06/08: Shows evidence of laminectomy defects at L3-L4 and L4-L5. There is fluid seen posteriorly to the thecal sac and the fluid density extends along the lateral aspect of the thecal sac at L4-L5. There is severe right- sided foraminal narrowing at L4 and L5. Possible renal cysts. Mild right pelvocaliectasis. Brain MRI 06/09: Shows no acute disease. Cervical spine MRI 06/09: Mild posterior disk bulge and spondylosis at C5-C6 and C6-C7. MRI lumbar spine 06/09: Fluid signal collection in the operative bed extending to the epidural space at L3-L4, L4-L5, and L5-S1. Severe compression of the thecal sac at L4-L5. There is a second fluid collection in the subcutaneous tissues described as above. Echo 06/10: EF 60% to 65%. Diastolic dysfunction with impaired relaxation. Mild MR. Mild TR. DISCHARGE CONDITION: Stable. ACTIVITY: As tolerated. DIET: Heart-healthy diet. DISCHARGE MEDICATIONS: 1. Cefdinir 300 mg p.o. q.12 hours for 5 days. 2. Olmesartan, to be resumed tomorrow for blood pressures more than 140. Discontinued medications: Hydrochlorothiazide. DISCHARGE INSTRUCTIONS: Patient is to follow up with her PCP in a week. Consider repeat lactic acid level and repeat LFTs in a week. Job ID: [id number] [facility]ITALDilip
== END 2020-06-10 17:45 | disposition home or self-care (01) | DRG 552 ==
LOC: ERS 16:10 → 2SE 19:42
PROVIDERS: ADMIT Internal Medicine; ATTEND Internal Medicine
DX: M47.892 Other spondylosis, cervical region (principal); E87.2 Acidosis; N39.0 Urinary tract infection, site not specified; N17.9 Acute kidney failure, unspecified; E87.1 Hypo-osmolality and hyponatremia; M96.1 Postlaminectomy syndrome, not elsewhere classified; E16.2 Hypoglycemia, unspecified; D50.9 Iron deficiency anemia, unspecified; R74.0 Nonspecific elevation of levels of transaminase and lactic acid dehydrogenase [LDH]; E86.0 Dehydration; I10 Essential (primary) hypertension; Z90.710 Acquired absence of both cervix and uterus; Z98.0 Intestinal bypass and anastomosis status
CPT/HCPCS: 36415; 36416; 70450; 70553; 72132; 72156; 72158; 80048; 80053; 80076; 81003; 81015; 82607; 82746; 83605; 83930; 83935; 84300; 84443; 84484; 85025; 85027; 85652; 87040; 87086; 93005; 93306; 94760; A9579; J0696; J3370; J3490; Q9967

== ENCOUNTER 2020-10-08 06:38 | Outpatient (CLI) | payer MEDICARE, OTHER ==
[2020-10-08 13:06] LABS: Bilirubin Neg (Negative); Blood, Urine 10 (Negative); Clarity Clear (Clear); Glucose, Urine (Dipstick) Normal (Negative); Ketone, Urine Negative (Negative); Leukocyte Negative (Negative); Nitrite Negative (Negative); Protein, Urine (Dipstick) Negative (Neg-Trace); Urobilinogen Normal mg/dL (Less than 2)
[2020-10-08 13:12] LABS: Hemoglobin 12.3 g/dL (12.0-16.0); Mean Corpuscular HGB CONC 32.5 G/DL (32.0-36.0); Mean Corpuscular Hemoglobin 30.1 PG (27.0-33.0); Mean Corpuscular Volume 92.4 fl (80.0-100.0); Mean Platelet Volume 10.2 fl (7.4-10.4); Platelet Count 340 10x3/uL (130-400); Red Blood Cell (RBC) Count 4.09 10x6/uL (3.90-5.20); White Blood Cell (WBC) Count 5.2 10x3/uL (4.5-11.0)
[2020-10-08 13:22] LABS: Anion Gap 14 mmol/L (10-20); BUN (Urea Nitrogen) 9 mg/dL (9.8-20.1); Calc. Creatinine Clearance 0 mL/min (70-130); Calcium 8.5 mg/dL (7.8-10.44); Carbon Dioxide 25 mmol/L (23-31); Chloride 102 mmol/L (98-107); Estimated GFR-MDRD 70; Glucose 79 mg/dL (80-115); Potassium 4.3 mmol/L (3.5-5.1); Sodium 137 mmol/L (136-145)
[2020-10-08 13:27] LABS: PTT 27.1 sec (22.0-33.0); Prothrombin Time 10.5 sec (9.5-12.1)
[2020-10-08 13:42] LABS: Bacteria/HPF Rare-Few HPF (None Seen); RBC/HPF 0-3 HPF (0-3); Squamous Epithelial 0-3 HPF (0-3); WBC/HPF 0-3 HPF (0-3)
[2020-10-08 22:56] LABS: SARS-CoV-2 MS2 Positive; SARS-CoV-2 N Gene Negative; SARS-CoV-2 S Gene Negative; SARS-CoV-2 by NAA Not Detected (NotDetected); SARS-CoV-2 orf1ab Negative
== END 2020-10-08 06:39 | disposition home or self-care (01) ==
LOC: LABBT 06:38
PROVIDERS: ATTEND Urology
DX: Z01.818 Encounter for other preprocedural examination (principal); Z01.812 Encounter for preprocedural laboratory examination; Z20.828 Contact with and (suspected) exposure to other viral communicable diseases; T83.711A Erosion of implanted vaginal mesh to surrounding organ or tissue, initial encounter
CPT/HCPCS: 80048; 81001; 85027; 85610; 85730; 87086; 93005; U0003; 87635; 93010

== ENCOUNTER 2020-10-13 05:59 | Day surgery (SDC) | payer MEDICARE, OTHER ==
[2020-10-12 10:19] VITALS: BMI 28.3
[2020-10-13] MEDS ORDERED: metroNIDAZOLE 500 MG/100 ML BAG ONE (06:08)
[2020-10-13] MEDS ORDERED: Bupivacaine 0.25% HCL 30 ML VIAL ONE (06:36)
[2020-10-13] MEDS ORDERED: Fentanyl 100 MCG/2 ML VIAL ONE (06:51)
[2020-10-13] MEDS ORDERED: Glycopyrrolate 0.2 MG/ML 5 ML SYRINGE ONE (09:11)
[2020-10-13] MEDS ORDERED: ePHEDrine 50 MG/ML VIAL ONE (09:11)
[2020-10-13] MEDS ORDERED: Dexamethasone 20 MG/5 ML VIAL ONE (09:11)
[2020-10-13] MEDS ORDERED: PHENYLEPHRINE-NS 100 MCG/ML 10 ML SYRINGE ONE (09:11)
[2020-10-13] MEDS ORDERED: PROPOFOL 200 MG/20 ML VIAL ONE (09:11)
[2020-10-13] MEDS ORDERED: Lidocaine 1% PF 5 ML VIAL ONE (09:11)
[2020-10-13] MEDS ORDERED: Ondansetron PF 4 MG/2 ML Vial ONE (09:11)
--- NOTE | 2020-10-13 09:44 | OP ---
DATE OF PROCEDURE: 10/13/2020 PREOPERATIVE DIAGNOSIS: Eroded vaginal mesh. POSTOPERATIVE DIAGNOSIS: Eroded vaginal mesh. PROCEDURE PERFORMED: Excision of eroded vaginal mesh. ANESTHESIA: General. COMPLICATIONS: None. ESTIMATED BLOOD LOSS: 30 mL. SPECIMEN: Vaginal mesh. DESCRIPTION OF PROCEDURE: After informed consent, the patient was taken to the operating room, transferred to the table under her own power. Anesthesia was established. A time-out was performed, showing the correct patient, site, and procedure. Preoperative antibiotics were administered. She was prepped and draped in the lithotomy position. A weighted speculum was placed in the area of eroded mesh about 1.5 cm in diameter was clearly visible. The surrounding vaginal mucosa was undermined allowing a right angle to be placed underneath the mesh. The arms of the mesh were then traced laterally and excised with heavy scissors. There were no further palpable mesh and so the subepithelial tissues were closed with 2-0 Vicryl pops and then vaginal mucosa closed with a running 2-0 chromic suture. A Killian catheter was placed at the end of the case to keep her bladder drained and clamped throughout the case. This was drained at the end of the case, noting no hematuria. The catheter was then removed. Vaginal mucosa was cauterized and no active bleeding was noted. She was then awoken from anesthesia, transferred back to her hospital bed, and taken to PACU in stable condition, where she was discharged home upon recovery. Job ID: [id number]
== END 2020-10-13 10:05 | disposition home or self-care (01) ==
LOC: SDC 05:59
PROVIDERS: ATTEND Urology
PROC: 0UPH7YZ Removal of Other Device from Vagina and Cul-de-sac, Via Natural or Artificial Opening (ICD-10-PCS; principal; 2020-10-13)
DX: T83.711A Erosion of implanted vaginal mesh to surrounding organ or tissue, initial encounter (principal); I10 Essential (primary) hypertension; Z79.899 Other long term (current) drug therapy; Z88.5 Allergy status to narcotic agent
CPT/HCPCS: 88304; J0690; J1100; J2405; J2704; J3010; J3490; S0020

== ENCOUNTER 2021-05-08 19:29 | Observation (INO) | payer MEDICARE, OTHER ==
[2021-05-08 20:26] LABS: #Basophils 0.1 thou/uL (0.0-0.2); #Eosinphils 0.1 thou/uL (0.0-0.7); #Lymphocytes 3.1 thou/uL (1.20-3.40); #Monocytes 0.6 thou/uL (0.11-0.59); #Neutrophils 3.7 thou/uL (1.40-6.50); %Basophils 1.6 % (0.0-1.0); %Eosinophils 1.6 % (0.0-10.0); %Lymphocytes 39.9 % (21.0-51.0); %Monocytes 8.1 % (0.0-10.0); %Neutrophils 48.8 % (42.0-75.0); Hemoglobin 11.3 g/dL (12.0-16.0); Mean Corpuscular HGB CONC 33.2 g/dL (32.0-36.0); Mean Corpuscular Hemoglobin 31.3 pg (27.0-31.0); Mean Corpuscular Volume 94.3 fL (78.0-98.0); Mean Platelet Volume 7.1 fL (7.4-10.4); Platelet Count 328 thou/uL (130-400); RBC Distribution Width 11.6 % (11.5-14.5); Red Blood Cell (RBC) Count 3.63 mill/uL (4.20-5.40); White Blood Cell (WBC) Count 7.7 thou/uL (4.8-10.8)
[2021-05-08 20:45] LABS: ALT (SGPT) 29 U/L (8-55); AST (SGOT) 32 U/L (5-34); Albumin 3.7 g/dL (3.4-4.8); Alkaline Phosphatase 135 U/L (40-110); Anion Gap 15 mmol/L (10-20); BUN (Urea Nitrogen) 20 mg/dL (9.8-20.1); Bilirubin, Total 0.4 mg/dL (0.2-1.2); Calc. Creatinine Clearance 0 mL/min (70-130); Calcium 8.4 mg/dL (7.8-10.44); Carbon Dioxide 20 mmol/L (23-31); Chloride 101 mmol/L (98-107); Globulin 2.9 g/dL (2.4-3.5); Glucose 122 mg/dL (80-115); Lipase 37 U/L (8-78); Potassium 3.7 mmol/L (3.5-5.1); Protein, Total 6.6 g/dL (5.8-8.1); Sodium 132 mmol/L (136-145)
[2021-05-08 20:47] LABS: Digoxin Less than 0.15 ng/mL (0.8-2.0)
[2021-05-08] MEDS ORDERED: Sodium Chloride 0.9% 1,000 ML IV SCH (23:30)
[2021-05-08 23:41] VITALS: BMI 30.2
[2021-05-09 00:33] LABS: Troponin I Less than 0.010 ng/mL (< 0.028)
[2021-05-09] MEDS ORDERED: Morphine 2 MG/ML VIAL SLOW IVP PRN (00:43)
[2021-05-09] MEDS ORDERED: Melatonin 3 MG TAB PO PRN (00:43)
[2021-05-09] MEDS ORDERED: cloNIDine 0.1 MG TAB PO PRN (00:43)
[2021-05-09] MEDS ORDERED: Acetaminophen 325 MG TAB PO PRN (00:43)
[2021-05-09] MEDS ORDERED: hydrALAZINE 20 MG/ML VIAL SLOW IVP PRN (00:43)
[2021-05-09] MEDS ORDERED: Ondansetron PF 4 MG/2 ML Vial IVP PRN (00:43)
[2021-05-09] MEDS ORDERED: HYDROcodone/Acetaminophen 5/325 mg Tablet PO PRN (00:43)
[2021-05-09] MEDS ORDERED: Promethazine HCl 12.5 MG in Sodium Chloride 0.9% 50 ML IVPB PRN (00:43)
[2021-05-09] MEDS ORDERED: Guaifenesin DM 100-10/5 ML UDCUP PO PRN (00:43)
[2021-05-09] MEDS ORDERED: Labetalol HCl 100 MG/20 ML VIAL SLOW IVP PRN (00:43)
[2021-05-09] MEDS ORDERED: Electrolyte Replacement Protocol 1 EACH FS SCH (00:45)
[2021-05-09] MEDS ORDERED: Nitroglycerin 0.4 MG TAB (25 Tab Bottle) SL PRN (00:52)
[2021-05-09] MEDS ORDERED: Aspirin Chewable 81 MG TAB PO SCH (01:00)
[2021-05-09 03:17] LABS: #Basophils 0.1 thou/uL (0.0-0.2); #Lymphocytes 1.9 thou/uL (1.20-3.40); #Monocytes 0.7 thou/uL (0.11-0.59); %Basophils 1.3 % (0.0-1.0); %Eosinophils 0.7 % (0.0-10.0); %Lymphocytes 28.9 % (21.0-51.0); %Monocytes 9.7 % (0.0-10.0); %Neutrophils 59.4 % (42.0-75.0); Hemoglobin 10.5 g/dL (12.0-16.0); Mean Corpuscular HGB CONC 33.9 g/dL (32.0-36.0); Mean Corpuscular Hemoglobin 32.1 pg (27.0-31.0); Mean Corpuscular Volume 94.5 fL (78.0-98.0); Mean Platelet Volume 6.9 fL (7.4-10.4); Platelet Count 282 thou/uL (130-400); RBC Distribution Width 11.6 % (11.5-14.5); Red Blood Cell (RBC) Count 3.26 mill/uL (4.20-5.40); White Blood Cell (WBC) Count 6.7 thou/uL (4.8-10.8)
[2021-05-09 03:33] LABS: Troponin I Less than 0.010 ng/mL (< 0.028)
[2021-05-09 03:48] LABS: Anion Gap 10 mmol/L (10-20); BUN (Urea Nitrogen) 14 mg/dL (9.8-20.1); Calc. Creatinine Clearance 74 mL/min (70-130); Carbon Dioxide 21 mmol/L (23-31); Chloride 107 mmol/L (98-107); Glucose 98 mg/dL (80-115); Potassium 3.4 mmol/L (3.5-5.1); Sodium 135 mmol/L (136-145)
[2021-05-09] MEDS ORDERED: Magnesium 2 GM/50 ML 2 GM in Premix Bag 1 BAG IVPB SCH (06:30)
[2021-05-09] MEDS ORDERED: Potassium Chloride 20 MEQ TAB PO SCH (06:45)
[2021-05-09] MEDS ORDERED: Heparin 5,000 UNITS/ML VIAL SC SCH (09:00)
[2021-05-09] MEDS ORDERED: Aspirin 81 mg Enteric Coated Tablet PO SCH (09:00)
[2021-05-09] MEDS ORDERED: Polyethylene Glycol 3350 17 GM Packet PO SCH (09:00)
[2021-05-09] MEDS ORDERED: Famotidine 20 MG TAB PO SCH (09:00)
[2021-05-09] MEDS ORDERED: Metoprolol Tartrate 25 MG TAB PO SCH (09:00)
[2021-05-09 17:21] VITALS: BP 121/57; TEMP 98
[2021-05-09] MEDS ORDERED: Atorvastatin Calcium 40 MG TAB PO SCH (21:00)
== END 2021-05-09 17:55 | disposition home or self-care (01) ==
LOC: ERS 19:29 → 2SW 22:01 → ERS 23:09
PROVIDERS: ADMIT Internal Medicine; ATTEND Internal Medicine
DX: R07.89 Other chest pain (principal); R06.02 Shortness of breath; R55 Syncope and collapse; I10 Essential (primary) hypertension; I34.1 Nonrheumatic mitral (valve) prolapse; E86.0 Dehydration; Z79.899 Other long term (current) drug therapy; Z88.5 Allergy status to narcotic agent; Z91.030 Bee allergy status
CPT/HCPCS: 70450; 71045; 78452; 80048; 80053; 80162; 83690; 83735; 84484 ×2; 85025 ×2; 93005; 93017; 96374; 99285; A9500; G0378 ×3; 36415; J3475

== ENCOUNTER 2021-05-20 08:12 | Outpatient (CLI) | payer MEDICARE, OTHER | END 2021-05-20 08:13 | disposition home or self-care (01) | LOC: BICRAD 08:12 | PROVIDERS: ATTEND Specialist | DX: M51.16 Intervertebral disc disorders with radiculopathy, lumbar region (principal); M43.16 Spondylolisthesis, lumbar region | CPT/HCPCS: 72110 ==

== ENCOUNTER 2021-05-31 07:00 | Outpatient (CLI) | payer MEDICARE, OTHER ==
[2021-05-31] MEDS ORDERED: Magnevist 469MG/ML 20 ML VIAL ONE (11:05)
== END 2021-05-31 07:01 | disposition home or self-care (01) ==
LOC: BICMRI 07:00
PROVIDERS: ATTEND Specialist
DX: M51.16 Intervertebral disc disorders with radiculopathy, lumbar region (principal); M47.26 Other spondylosis with radiculopathy, lumbar region; M48.061 Spinal stenosis, lumbar region without neurogenic claudication
CPT/HCPCS: 72158

== ENCOUNTER 2021-08-05 08:38 | Outpatient (CLI) | payer MEDICARE, OTHER ==
[2021-08-05 10:06] LABS: Hemoglobin 12.3 g/dL (12.0-15.5); Mean Corpuscular HGB CONC 31.1 g/dL (32.0-36.0); Mean Corpuscular Hemoglobin 29.7 pg (27.0-33.0); Mean Corpuscular Volume 95.7 fl (81.6-98.3); Mean Platelet Volume 10.3 fl (7.4-10.4); Platelet Count 324 10x3/uL (150-450); RBC Distribution Width 13.2 % (11.5-14.5); Red Blood Cell (RBC) Count 4.14 10x6/uL (3.90-5.03)
[2021-08-05 10:11] LABS: PTT 24.8 sec (22.0-33.0); Prothrombin Time 10.6 sec (9.5-12.1)
[2021-08-05 10:22] LABS: Anion Gap 14 mmol/L (10-20); BUN (Urea Nitrogen) 10 mg/dL (9.8-20.1); Calc. Creatinine Clearance 0 mL/min (70-130); Calcium 9.5 mg/dL (7.8-10.44); Carbon Dioxide 22 mmol/L (23-31); Chloride 106 mmol/L (98-107); Glucose 123 mg/dL (80-115); Potassium 3.6 mmol/L (3.5-5.1); Sodium 138 mmol/L (136-145)
[2021-08-06 00:34] LABS: SARS-CoV-2 PCR by NAA Not Detected (NotDetected)
== END 2021-08-05 08:39 | disposition home or self-care (01) ==
LOC: LABBT 08:38
PROVIDERS: ATTEND Surgery
DX: Z01.818 Encounter for other preprocedural examination (principal); M54.16 Radiculopathy, lumbar region; M43.16 Spondylolisthesis, lumbar region; M48.061 Spinal stenosis, lumbar region without neurogenic claudication; Z20.822 Contact with and (suspected) exposure to COVID-19
CPT/HCPCS: 80048; 85027; 85610; 85730; 86850; 86900; 86901; 93005; U0003; U0005; 93010

== ENCOUNTER 2021-08-06 08:09 | Outpatient (CLI) | payer MEDICARE, OTHER | END 2021-08-06 08:10 | disposition home or self-care (01) | LOC: PET 08:09 | PROVIDERS: ATTEND Family Medicine | DX: R41.3 Other amnesia (principal) | CPT/HCPCS: 78803; A9552 ==

== ENCOUNTER 2021-08-25 16:25 | Outpatient (CLI) | payer MEDICARE, OTHER | END 2021-08-25 16:26 | disposition home or self-care (01) | LOC: BICRAD 16:25 | PROVIDERS: ATTEND Specialist | DX: M12.811 Other specific arthropathies, not elsewhere classified, right shoulder (principal) ==

== ENCOUNTER 2021-08-30 14:37 | Outpatient (CLI) | payer MEDICARE, OTHER | END 2021-08-30 14:38 | disposition home or self-care (01) | LOC: LABBT 14:37 | PROVIDERS: ATTEND Surgery | DX: Z01.812 Encounter for preprocedural laboratory examination (principal); M54.16 Radiculopathy, lumbar region; M48.061 Spinal stenosis, lumbar region without neurogenic claudication; M43.16 Spondylolisthesis, lumbar region; Z20.822 Contact with and (suspected) exposure to COVID-19 | CPT/HCPCS: 80048; 85027; 85610; 85730; 86850; 86900; 86901; U0003; U0005 ==

== ENCOUNTER 2021-09-02 05:57 | Inpatient (IN) | payer MEDICARE, OTHER ==
[2021-08-05 10:06] LABS: Hemoglobin 12.3 g/dL (12.0-15.5); Mean Corpuscular HGB CONC 31.1 g/dL (32.0-36.0); Mean Corpuscular Hemoglobin 29.7 pg (27.0-33.0); Mean Corpuscular Volume 95.7 fl (81.6-98.3); Mean Platelet Volume 10.3 fl (7.4-10.4); Platelet Count 324 10x3/uL (150-450); RBC Distribution Width 13.2 % (11.5-14.5); Red Blood Cell (RBC) Count 4.14 10x6/uL (3.90-5.03)
[2021-08-05 10:11] LABS: PTT 24.8 sec (22.0-33.0); Prothrombin Time 10.6 sec (9.5-12.1)
[2021-08-05 10:22] LABS: Anion Gap 14 mmol/L (10-20); BUN (Urea Nitrogen) 10 mg/dL (9.8-20.1); Calc. Creatinine Clearance 0 mL/min (70-130); Calcium 9.5 mg/dL (7.8-10.44); Carbon Dioxide 22 mmol/L (23-31); Chloride 106 mmol/L (98-107); Glucose 123 mg/dL (80-115); Potassium 3.6 mmol/L (3.5-5.1); Sodium 138 mmol/L (136-145)
[2021-08-06 00:34] LABS: SARS-CoV-2 PCR by NAA Not Detected (NotDetected)
[2021-08-30 16:53] LABS: Hemoglobin 12.4 g/dL (12.0-15.5); Mean Corpuscular HGB CONC 32.5 g/dL (32.0-36.0); Mean Corpuscular Hemoglobin 30.3 pg (27.0-33.0); Mean Corpuscular Volume 93.4 fl (81.6-98.3); Mean Platelet Volume 10.1 fl (7.4-10.4); Platelet Count 395 10x3/uL (150-450); RBC Distribution Width 13.3 % (11.5-14.5); Red Blood Cell (RBC) Count 4.09 10x6/uL (3.90-5.03); White Blood Cell (WBC) Count 9.3 10x3/uL (3.5-10.5)
[2021-08-30 17:07] LABS: INR-International Normal Ratio 0.9; PTT 23.1 sec (22.0-33.0); Prothrombin Time 9.8 sec (9.5-12.1)
[2021-08-30 17:12] LABS: Anion Gap 14 mmol/L (10-20); BUN (Urea Nitrogen) 11 mg/dL (9.8-20.1); Calc. Creatinine Clearance 0 mL/min (70-130); Calcium 9.8 mg/dL (7.8-10.44); Carbon Dioxide 27 mmol/L (23-31); Chloride 105 mmol/L (98-107); Glucose 73 mg/dL (80-115); Potassium 5.1 mmol/L (3.5-5.1); Sodium 141 mmol/L (136-145)
[2021-08-31 20:34] LABS: SARS-CoV-2 PCR by NAA Not Detected (NotDetected)
[2021-09-01 14:40] VITALS: BMI 30.8
[2021-09-02] MEDS ORDERED: Thrombin 5000 UNITS/5 ML VIAL ONE ×2 (06:49→10:58)
[2021-09-02] MEDS ORDERED: Fentanyl 250 MCG/5 ML VIAL ONE (07:10)
[2021-09-02] MEDS ORDERED: Albumin 5% 500 ML ONE (07:10)
[2021-09-02] MEDS ORDERED: Midazolam HCl 2 mg/2 ml Vial ONE (07:28)
[2021-09-02] MEDS ORDERED: Ondansetron PF 4 MG/2 ML Vial ONE (08:03)
[2021-09-02] MEDS ORDERED: ePHEDrine 50 MG/ML VIAL ONE (08:03)
[2021-09-02] MEDS ORDERED: Rocuronium Bromide 10 MG/ML (10ML VIAL) ONE (08:03)
[2021-09-02] MEDS ORDERED: Dexamethasone 20 MG/5 ML VIAL ONE (08:03)
[2021-09-02] MEDS ORDERED: PROPOFOL 200 MG/20 ML VIAL ONE (08:03)
[2021-09-02] MEDS ORDERED: Lidocaine 1% PF 5 ML VIAL ONE (08:03)
[2021-09-02] MEDS ORDERED: Glycopyrrolate 0.2 MG/ML 5 ML SYRINGE ONE (08:03)
[2021-09-02] MEDS ORDERED: Promethazine HCl 25 MG/ML VIAL IM PRN (11:08)
[2021-09-02] MEDS ORDERED: Ondansetron HCl/PF 4 MG/2 ML Vial IVP PRN (11:08)
[2021-09-02] MEDS ORDERED: Promethazine HCl 25 MG/ML VIAL IVPB PRN (11:08)
[2021-09-02] MEDS ORDERED: Fentanyl 100 MCG/2 ML VIAL ONE (12:28)
[2021-09-02] MEDS ORDERED: traMADol HCl 50 MG TAB PO PRN (12:42)
[2021-09-02] MEDS ORDERED: Acetaminophen 325 MG TAB PO PRN (12:42)
[2021-09-02] MEDS ORDERED: Bisacodyl 5 MG TAB PO PRN (12:49)
[2021-09-02] MEDS ORDERED: Polyethylene Glycol 3350 17 GM Packet PO PRN (12:49)
[2021-09-02] MEDS ORDERED: Bisacodyl 10 MG SUPP PR PRN (12:49)
[2021-09-02] MEDS ORDERED: hydrALAZINE 20 MG/ML VIAL SLOW IVP PRN (12:50)
[2021-09-02] MEDS ORDERED: ceFAZolin Sodium/D5W 2 GM in Premix Bag 1 BAG IVPB SCH (14:00)
[2021-09-02] MEDS: Morphine 4 MG/ML VIAL SLOW IVP PRN ×2 (15:33→21:21)
[2021-09-02] MEDS: HYDROcodone/Acetaminophen 7.5/325 mg Tablet PO PRN ×2 (15:35→21:18)
[2021-09-02] MEDS: ceFAZolin Sodium/D5W 2 GM in Premix Bag 1 BAG IVPB SCH (15:35)
[2021-09-02] MEDS: Sodium Chloride 0.9% 1,000 ML IV SCH (16:24)
[2021-09-02] MEDS: Ketorolac Tromethamine 30 MG/ML VIAL IVP PRN (18:32)
[2021-09-02] MEDS: Docusate 100 MG CAP PO SCH (20:14)
[2021-09-03] MEDS: ceFAZolin Sodium/D5W 2 GM in Premix Bag 1 BAG IVPB SCH ×4 (00:32→23:23)
[2021-09-03] MEDS: Sodium Chloride 0.9% 1,000 ML IV SCH ×2 (00:36→15:24)
[2021-09-03] MEDS: Ferrous Sulfate 325 MG TAB PO SCH (09:21)
[2021-09-03] MEDS: Docusate 100 MG CAP PO SCH ×2 (09:21→20:49)
[2021-09-03] MEDS: Cholecalciferol 1,000 UNITS (25 MCG) TAB PO SCH (09:26)
[2021-09-03] MEDS: Cyanocobalamin (Vitamin B-12) 1,000 MCG TAB PO SCH (09:26)
[2021-09-03] MEDS: Potassium Chloride 10 MEQ TAB PO SCH (09:26)
[2021-09-03] MEDS: Stress 600 With Zinc 1 TAB PO SCH (09:26)
[2021-09-03] MEDS: HYDROcodone/Acetaminophen 7.5/325 mg Tablet PO PRN (09:31)
[2021-09-03] MEDS: Losartan 25 MG TAB PO SCH (10:37)
[2021-09-03] MEDS: Chlorthalidone 25 MG TAB PO SCH (10:37)
[2021-09-03] MEDS: Ketorolac Tromethamine 30 MG/ML VIAL IVP PRN (12:42)
[2021-09-03] MEDS: Acetaminophen/Codeine 30-300mg Tablet PO PRN (20:49)
[2021-09-04] MEDS: Sodium Chloride 0.9% 1,000 ML IV SCH ×2 (04:21→18:36)
[2021-09-04] MEDS: ceFAZolin Sodium/D5W 2 GM in Premix Bag 1 BAG IVPB SCH (09:22)
[2021-09-04] MEDS: Chlorthalidone 25 MG TAB PO SCH (09:23)
[2021-09-04] MEDS: Ferrous Sulfate 325 MG TAB PO SCH (09:23)
[2021-09-04] MEDS: Potassium Chloride 10 MEQ TAB PO SCH (09:24)
[2021-09-04] MEDS: Acetaminophen/Codeine 30-300mg Tablet PO PRN ×2 (09:24→18:18)
[2021-09-04] MEDS: Losartan 25 MG TAB PO SCH (09:24)
[2021-09-04] MEDS: Docusate 100 MG CAP PO SCH ×2 (09:24→22:07)
[2021-09-04] MEDS: Cholecalciferol 1,000 UNITS (25 MCG) TAB PO SCH (09:24)
[2021-09-04] MEDS: Cyanocobalamin (Vitamin B-12) 1,000 MCG TAB PO SCH (09:24)
[2021-09-04] MEDS: Stress 600 With Zinc 1 TAB PO SCH (09:25)
[2021-09-04] MEDS: HYDROcodone/Acetaminophen 7.5/325 mg Tablet PO PRN (13:53)
[2021-09-04] MEDS: Ketorolac Tromethamine 30 MG/ML VIAL IVP PRN (22:07)
[2021-09-04] MEDS: tiZANidine HCl 4 MG TAB PO PRN (22:07)
[2021-09-05] MEDS: Sodium Chloride 0.9% 1,000 ML IV SCH ×2 (08:50→19:59)
[2021-09-05] MEDS: Cholecalciferol 1,000 UNITS (25 MCG) TAB PO SCH (09:07)
[2021-09-05] MEDS: Potassium Chloride 10 MEQ TAB PO SCH (09:07)
[2021-09-05] MEDS: Cyanocobalamin (Vitamin B-12) 1,000 MCG TAB PO SCH (09:08)
[2021-09-05] MEDS: Docusate 100 MG CAP PO SCH ×2 (09:08→19:59)
[2021-09-05] MEDS: Losartan 25 MG TAB PO SCH (09:08)
[2021-09-05] MEDS: Ferrous Sulfate 325 MG TAB PO SCH (09:08)
[2021-09-05] MEDS: Chlorthalidone 25 MG TAB PO SCH (09:18)
[2021-09-05] MEDS: Stress 600 With Zinc 1 TAB PO SCH (09:19)
[2021-09-05] MEDS: tiZANidine HCl 4 MG TAB PO PRN (13:53)
[2021-09-05] MEDS ORDERED: Ketorolac Tromethamine 10 MG TAB PO PRN (15:44)
[2021-09-06 06:18] LABS: #Eosinphils 0.4 thou/uL (0.0-0.7); #Lymphocytes 2.2 thou/uL (1.20-3.40); #Monocytes 0.6 thou/uL (0.11-0.59); #Neutrophils 5.4 thou/uL (1.40-6.50); %Basophils 0.2 % (0.0-1.0); %Eosinophils 4.7 % (0.0-10.0); %Lymphocytes 25.4 % (21.0-51.0); %Monocytes 6.9 % (0.0-10.0); %Neutrophils 62.8 % (42.0-75.0); Hemoglobin 10.9 g/dL (12.0-16.0); Mean Corpuscular Hemoglobin 32.2 pg (27.0-31.0); Mean Corpuscular Volume 94.6 fL (78.0-98.0); Mean Platelet Volume 7.7 fL (7.4-10.4); Platelet Count 276 thou/uL (130-400); RBC Distribution Width 12.1 % (11.5-14.5); Red Blood Cell (RBC) Count 3.38 mill/uL (4.20-5.40); White Blood Cell (WBC) Count 8.7 thou/uL (4.8-10.8)
[2021-09-06 06:40] LABS: Anion Gap 11 mmol/L (10-20); BUN (Urea Nitrogen) 9 mg/dL (9.8-20.1); Calc. Creatinine Clearance 85 mL/min (70-130); Calcium 8.6 mg/dL (7.8-10.44); Carbon Dioxide 28 mmol/L (23-31); Chloride 101 mmol/L (98-107); Glucose 84 mg/dL (80-115); Potassium 4.1 mmol/L (3.5-5.1); Sodium 136 mmol/L (136-145)
[2021-09-06] MEDS: Ferrous Sulfate 325 MG TAB PO SCH (08:50)
[2021-09-06] MEDS: Cyanocobalamin (Vitamin B-12) 1,000 MCG TAB PO SCH (08:50)
[2021-09-06] MEDS: Docusate 100 MG CAP PO SCH ×2 (08:50→19:40)
[2021-09-06] MEDS: Potassium Chloride 10 MEQ TAB PO SCH (08:50)
[2021-09-06] MEDS: Cholecalciferol 1,000 UNITS (25 MCG) TAB PO SCH (08:50)
[2021-09-06] MEDS: Losartan 25 MG TAB PO SCH (08:59)
[2021-09-06] MEDS: Acetaminophen/Codeine 30-300mg Tablet PO PRN (12:23)
[2021-09-06] MEDS: Chlorthalidone 25 MG TAB PO SCH (12:26)
[2021-09-06] MEDS: Stress 600 With Zinc 1 TAB PO SCH (12:26)
[2021-09-06] MEDS: Sodium Chloride 0.9% 1,000 ML IV SCH ×2 (12:47→19:41)
[2021-09-06 15:56] VITALS: BP 134/65; TEMP 98
[2021-09-07] MEDS ORDERED: Estradiol 0.01% Vaginal Cream 42.5 gm Tube VAG SCH (09:00)
== END 2021-09-06 21:00 | DRG 454 ==
LOC: SDC 05:57 → SURG B 12:42
PROVIDERS: ADMIT Surgery; ATTEND Surgery
PROC: 0SG00AJ Fusion of Lumbar Vertebral Joint with Interbody Fusion Device, Posterior Approach, Anterior Column, Open Approach (ICD-10-PCS; principal; 2021-09-02)
PROC: 0SG0071 Fusion of Lumbar Vertebral Joint with Autologous Tissue Substitute, Posterior Approach, Posterior Column, Open Approach (ICD-10-PCS; 2021-09-02)
PROC: 01NB0ZZ Release Lumbar Nerve, Open Approach (ICD-10-PCS; 2021-09-02)
PROC: 0SB20ZZ Excision of Lumbar Vertebral Disc, Open Approach (ICD-10-PCS; 2021-09-02)
PROC: 3E0U0GB Introduction of Recombinant Bone Morphogenetic Protein into Joints, Open Approach (ICD-10-PCS; 2021-09-02)
DX: M48.061 Spinal stenosis, lumbar region without neurogenic claudication (principal); T81.31XA Disruption of external operation (surgical) wound, not elsewhere classified, initial encounter; M54.16 Radiculopathy, lumbar region; Z20.822 Contact with and (suspected) exposure to COVID-19; M43.16 Spondylolisthesis, lumbar region; Z88.8 Allergy status to other drugs, medicaments and biological substances; Y83.8 Other surgical procedures as the cause of abnormal reaction of the patient, or of later complication, without mention of misadventure at the time of the procedure
CPT/HCPCS: 36415; 76000; 80048; 85025; 85027; 85610; 85730; 86850; 86900; 86901; 93970; C1713; C1768; J1100; J1885; J2250; J2270; J2405; J2704; J3010; J3370; J3490; J7050; P9045; U0003; U0005

== ENCOUNTER 2021-10-13 10:33 | Outpatient (CLI) | payer MEDICARE, OTHER | END 2021-10-13 10:34 | disposition home or self-care (01) | LOC: BICRAD 10:33 | PROVIDERS: ATTEND Surgery | DX: M51.26 Other intervertebral disc displacement, lumbar region (principal); M43.16 Spondylolisthesis, lumbar region; M47.816 Spondylosis without myelopathy or radiculopathy, lumbar region; Z98.890 Other specified postprocedural states | CPT/HCPCS: 72100 ==

== ENCOUNTER 2022-06-23 11:10 | Outpatient (CLI) | payer OTHER | END 2022-06-23 11:11 | disposition home or self-care (01) | LOC: BICMAMMO 11:10 | PROVIDERS: ATTEND Family Medicine | DX: Z12.31 Encounter for screening mammogram for malignant neoplasm of breast (principal); Z80.3 Family history of malignant neoplasm of breast | CPT/HCPCS: 77063; 77067 ==

== ENCOUNTER 2022-08-23 09:37 | Outpatient (CLI) | payer OTHER | END 2022-08-23 09:38 | disposition home or self-care (01) | LOC: BICMAMMO 09:37 | PROVIDERS: ATTEND Family Medicine | DX: N95.9 Unspecified menopausal and perimenopausal disorder (principal); M85.851 Other specified disorders of bone density and structure, right thigh; M85.852 Other specified disorders of bone density and structure, left thigh | CPT/HCPCS: 77080 ==

== ENCOUNTER 2022-11-30 08:37 | Outpatient (CLI) | payer OTHER | END 2022-11-30 08:38 | disposition home or self-care (01) | LOC: TBSIIMAG 08:37 | PROVIDERS: ATTEND Surgery | DX: M43.16 Spondylolisthesis, lumbar region (principal); M47.896 Other spondylosis, lumbar region; R29.890 Loss of height | CPT/HCPCS: 72100; 72148 ==

== ENCOUNTER 2023-09-20 08:11 | Outpatient (CLI) | payer OTHER | END 2023-09-20 08:12 | disposition home or self-care (01) | LOC: MRI 08:11 | PROVIDERS: ATTEND Surgery | DX: M47.26 Other spondylosis with radiculopathy, lumbar region (principal); M48.061 Spinal stenosis, lumbar region without neurogenic claudication; Z98.1 Arthrodesis status | CPT/HCPCS: 72110; 72148 ==

== ENCOUNTER 2023-12-07 11:57 | Outpatient (CLI) | payer OTHER | END 2023-12-07 11:58 | disposition home or self-care (01) | LOC: BICMAMMO 11:57 | PROVIDERS: ATTEND Family Medicine | DX: Z12.31 Encounter for screening mammogram for malignant neoplasm of breast (principal); Z80.3 Family history of malignant neoplasm of breast | CPT/HCPCS: 77063; 77067 ==

== ENCOUNTER 2024-09-11 14:07 | Outpatient (CLI) | payer OTHER ==
[2024-09-11 15:44] LABS: #Basophils 0.04 10x3/uL (0.0-0.2); %Basophils 0.6 % (0.0-1.0); %Eosinophils 1.1 % (0.0-10.0); %Lymphocytes 47.6 % (21.0-51.0); %Monocytes 8.9 % (0.0-10.0); %Neutrophils 41.6 % (42.0-75.0); Hematocrit 37.6 % (36.0-47.0); Hemoglobin 12.2 g/dL (12.0-16.0); Mean Corpuscular HGB CONC 32.4 g/dL (32.0-36.0); Mean Corpuscular Hemoglobin 30.2 pg (27.0-31.0); Mean Corpuscular Volume 93.1 fL (78.0-98.0); Mean Platelet Volume 10.8 fL (7.4-10.4); Platelet Count 352 10x3/uL (130-400); RBC Distribution Width 13.4 % (11.5-14.5); Red Blood Cell (RBC) Count 4.04 mill/uL (4.20-5.40)
[2024-09-11 16:06] LABS: Anion Gap 12 mmol/L (10-20); BUN (Urea Nitrogen) 9 mg/dL (9.8-20.1); Calc. Creatinine Clearance 0 mL/min (70-130); Calcium 8.9 mg/dL (7.8-10.44); Carbon Dioxide 26 mmol/L (23-31); Chloride 103 mmol/L (98-107); Estimated GFR 68; Glucose 67 mg/dL (80-115); Potassium 3.9 mmol/L (3.5-5.1); Sodium 137 mmol/L (136-145)
== END 2024-09-11 14:08 | disposition home or self-care (01) ==
LOC: LABBT 14:07
PROVIDERS: ATTEND Orthopaedic Surgery
DX: Z01.818 Encounter for other preprocedural examination (principal); M75.121 Complete rotator cuff tear or rupture of right shoulder, not specified as traumatic
CPT/HCPCS: 80048; 85025; 93005; 93010

== ENCOUNTER 2024-09-18 06:00 | Day surgery (SDC) | payer OTHER ==
[2024-09-11 14:37] VITALS: BMI 28.0
[2024-09-18] MEDS ORDERED: Lidocaine 1% (PF) 30 ML VIAL ONE ×2 (06:19→06:51)
[2024-09-18] MEDS ORDERED: EPINEPHrine 1 MG/ML VIAL ONE (06:19)
[2024-09-18] MEDS ORDERED: Sodium Chloride 0.9% 100 ML ONE (06:27)
[2024-09-18] MEDS ORDERED: Vancomycin 1 GM/200 ML (FROZEN) BAG ONE (06:27)
[2024-09-18] MEDS ORDERED: Tranexamic Acid 1,000 MG/10 ML VIAL ONE (06:27)
[2024-09-18] MEDS ORDERED: fentaNYL PF 100 MCG/2 ML SYRINGE ONE (06:34)
[2024-09-18] MEDS ORDERED: PROPOFOL 40 ML ONE (06:34)
[2024-09-18] MEDS ORDERED: Midazolam HCl 2 mg/2 ml Vial ONE (06:35)
[2024-09-18] MEDS ORDERED: Ropivacaine 0.5% HCl/PF (150 MG/30 ML VIAL) ONE (06:51)
[2024-09-18] MEDS ORDERED: Ropivacaine 0.2% HCl/PF 20 ML ONE (06:51)
[2024-09-18] MEDS ORDERED: CEFAZOLIN 2 GM VIAL ONE (07:10)
[2024-09-18] MEDS ORDERED: Glycopyrrolate 0.2 MG/ML 5 ML SYRINGE ONE (07:38)
[2024-09-18] MEDS ORDERED: Rocuronium Bromide 10 MG/ML (10ML VIAL) ONE (07:38)
[2024-09-18] MEDS ORDERED: Dexamethasone 20 MG/5 ML VIAL ONE (07:38)
[2024-09-18] MEDS ORDERED: traMADol HCl 50 MG TAB PO PRN ×2 (08:00)
[2024-09-18] MEDS ORDERED: Ropivacaine 0.2% 550 ML 550 ML NERVE BLCK SCH (08:00)
[2024-09-18] MEDS ORDERED: HYDROcodone/Acetaminophen 10/325 mg Tablet PO PRN ×2 (08:00)
[2024-09-18] MEDS ORDERED: Promethazine HCl 25 MG/ML VIAL IM PRN (08:00)
[2024-09-18] MEDS ORDERED: Zolpidem Tartrate 5 MG TAB PO PRN (08:00)
[2024-09-18] MEDS ORDERED: Ondansetron PF 4 MG/2 ML Vial IVP PRN (08:00)
[2024-09-18] MEDS ORDERED: PHENYLEPHRINE-NS 100 MCG/ML 10 ML SYRINGE ONE ×2 (08:08→12:18)
[2024-09-18] MEDS ORDERED: Calcium Chloride 1 GM/10 ML Abboject SYRINGE ONE (08:19)
[2024-09-18] MEDS ORDERED: Ondansetron PF 4 MG/2 ML Vial ONE (08:30)
[2024-09-18] MEDS ORDERED: Ketorolac Tromethamine 30 MG (1 mL) VIAL ONE (08:30)
[2024-09-18] MEDS ORDERED: SUGAMMADEX SODIUM 200 MG/2 ML VIAL ONE (08:31)
[2024-09-18] MEDS ORDERED: CEFAZOLIN 1 GM VIAL ONE (12:26)
== END 2024-09-18 11:07 | disposition home or self-care (01) ==
LOC: SDC 06:00
PROVIDERS: ATTEND Orthopaedic Surgery
PROC: 3E0T3BZ Introduction of Anesthetic Agent into Peripheral Nerves and Plexi, Percutaneous Approach (ICD-10-PCS; principal; 2024-09-18)
PROC: 0LS34ZZ Reposition Right Upper Arm Tendon, Percutaneous Endoscopic Approach (ICD-10-PCS; 2024-09-18)
DX: M75.121 Complete rotator cuff tear or rupture of right shoulder, not specified as traumatic (principal); M24.111 Other articular cartilage disorders, right shoulder; I10 Essential (primary) hypertension; I34.1 Nonrheumatic mitral (valve) prolapse; Z90.49 Acquired absence of other specified parts of digestive tract; Z91.030 Bee allergy status; Z88.8 Allergy status to other drugs, medicaments and biological substances; Z79.2 Long term (current) use of antibiotics; Z79.899 Other long term (current) drug therapy
CPT/HCPCS: 23430; 29827; 64416; A4306; J0171; J0690; J1885; J2250; J2405; J2704; J2795 ×3; J3370; C1713; J1100

== ENCOUNTER 2025-07-04 07:37 | Outpatient (CLI) | payer OTHER | END 2025-07-04 07:38 | disposition home or self-care (01) | LOC: BICULT 07:37 | PROVIDERS: ATTEND Family Medicine | DX: R14.0 Abdominal distension (gaseous) (principal); Z90.49 Acquired absence of other specified parts of digestive tract | CPT/HCPCS: 76700 ==

== ENCOUNTER 2025-09-16 13:33 | Outpatient (CLI) | payer OTHER | END 2025-09-16 13:34 | disposition home or self-care (01) | LOC: BICRAD 13:33 | PROVIDERS: ATTEND Family Medicine | DX: M17.10 Unilateral primary osteoarthritis, unspecified knee (principal) | CPT/HCPCS: 73565 ==